=== PATIENT | female | born 1940 | race Caucasian/White ===

== ENCOUNTER → 2017-09-26 | Outpatient (CLI) | payer MEDICARE ==
[~2017-09-26] MED LIST: ALBU8.5H8 IH; ASPI-555 PO; BUDE10.2 IH; DOXY-252 PO; INHALER IH; LISI10TA7 PO; METOPROLOL PO; PREG150C PO; SIMV40TA5 PO
== END | disposition home or self-care (01) ==
LOC: SHCH 08:07
PROVIDERS: ATTEND Internal Medicine Cardiovascular Disease
DX: I51.7 Cardiomegaly (principal); I35.8 Other nonrheumatic aortic valve disorders
CPT/HCPCS: 93306

== ENCOUNTER → 2017-10-02 | Outpatient (CLI) | payer MEDICARE ==
[~2017-10-02] MED LIST changes: +REGADENOSON 0.4 MG/5 ML PF SYG IVP SCH
== END | disposition home or self-care (01) ==
LOC: SHCH 08:00
PROVIDERS: ATTEND Internal Medicine Cardiovascular Disease
DX: R07.89 Other chest pain (principal); R94.31 Abnormal electrocardiogram [ECG] [EKG]; R05 Cough; R06.00 Dyspnea, unspecified; R00.0 Tachycardia, unspecified; R11.0 Nausea; R10.9 Unspecified abdominal pain; R51 Headache
CPT/HCPCS: 78452; 93017; 96374; A9500 ×2; J2785

== ENCOUNTER 2017-10-09 05:30 | Day surgery (SDC) | payer MEDICARE ==
[2017-10-08 09:13] VITALS: BP 117/54
[2017-10-08 09:20] LABS: BASOPHILS % (AUTO) 0.8 % (0.0-5.0); EOSINOPHILS % (AUTO) 1.1 % (0.0-8.0); HEMATOCRIT 43.4 % (36-48); LYMPHOCYTES % (AUTO) 24.9 % (21.0-51.0); MEAN CORPUSCULAR HEMOGLOBIN 32.8 pg (27.0-33.0); MEAN CORPUSCULAR HGB CONC 34.8 g/dL (32.0-36.0); MEAN CORPUSCULAR VOLUME 94.4 fL (79-99); MONOCYTES % (AUTO) 7.2 % (3.0-13.0); PLATELET COUNT (AUTO) 391 K/uL (130-400); WHITE BLOOD COUNT (AUTO) 6.5 K/uL (4.8-10.8)
[2017-10-08 09:26] LABS: CREATININE 0.9 mg/dL (0.5-1.5); POTASSIUM 4.7 mmol/L (3.5-5.1)
[2017-10-08 09:28] LABS: APPEARANCE,URINE Clear (CLEAR); BILIRUBIN,URINE Negative (NEGATIVE); COLOR,URINE Yellow (YELLOW); GLUCOSE, URINE (UA) Negative (NEGATIVE); KETONES,URINE Negative (NEGATIVE); LEUKOCYTE ESTERASE ,URINE Small (NEGATIVE); NITRATE,URINE Negative (NEGATIVE); OCCULT BLOOD,URINE Negative (NEGATIVE); PH,URINE 6.5 (5.0-8.0); PROTEIN,URINE Negative (NEGATIVE)
[2017-10-08 09:32] LABS: PARTIAL THROMBOPLASTIN TIME 26.7 SEC (26.3-35.5); PROTHROMBIN TIME 10.5 SEC (9.6-11.6)
[2017-10-08 09:42] LABS: BACTERIA,URINE Rare /HPF (None Seen); RBC,URINE 0-1 /HPF (0-1); SQUAMOUS EPITHELIAL CELL,UR Rare /LPF (0-2); WBC,URINE 0-1 /HPF (0-1)
[2017-10-09] VITALS (9 sets, daily range): BP systolic 89–113; BP diastolic 40–57
[~2017-10-09] VITALS: Ht 179.1 cm; Wt 56.9 kg
[~2017-10-09 05:30] MED LIST changes: +ACETAMINOPHEN 325 MG TAB PO PRN; -ALBU8.5H8 IH; -BUDE10.2 IH; -DOXY-252 PO; -INHALER IH; -REGADENOSON 0.4 MG/5 ML PF SYG IVP SCH; -SIMV40TA5 PO; +SODIUM CHLORIDE 0.9% 500ML 500 ML IV SCH
[2017-10-09] MEDS ORDERED: INHALER IH (06:50)
[2017-10-09] MEDS ORDERED: IPRATROPIUM/ALBUTEROL SULFATE 3 ML SOLUTION IH ONE (07:48)
[2017-10-09] MEDS ORDERED: IOPAMIDOL-370 100 ML VIAL IV ONE (09:03)
[2017-10-09] MEDS ORDERED: NITROGLYCERIN 5 MG/ML 10 ML VIAL IV ONE (09:03)
[2017-10-09] MEDS ORDERED: ISOVUE-370 50ML VIAL IV ONE (09:03)
[2017-10-09] MEDS ORDERED: HEPARIN SODIUM 1000UNIT/ML 10ML VIAL ONE (09:03)
[2017-10-09] MEDS ORDERED: SODIUM BICARB 50MEQ 50ML VIAL ONE (09:03)
[2017-10-09] MEDS ORDERED: LIDOCAINE HCL 2% 20ML ONE (09:04)
[2017-10-09] MEDS ORDERED: MIDAZOLAM HCL 1 MG/ML 2ML VIAL ONE (09:04)
[2017-10-09] MEDS ORDERED: IOPAMIDOL-370 75 ML VIAL IV ONE (09:04)
[2017-10-09] MEDS ORDERED: MEPERIDINE-PF 25 MG/ML SYG ONE (09:04)
[2017-10-09] MEDS ORDERED: SODIUM CHLORIDE 0.9% 1000ML 1,000 ML IV SCH (09:48)
[2017-10-09] MEDS ORDERED: SIMV40TA5 PO (09:50)
== END 2017-10-09 14:15 | disposition home or self-care (01) ==
LOC: DAH 05:30
PROVIDERS: ATTEND Internal Medicine Cardiovascular Disease
DX: I25.118 Atherosclerotic heart disease of native coronary artery with other forms of angina pectoris (principal); I10 Essential (primary) hypertension; E78.5 Hyperlipidemia, unspecified; M19.90 Unspecified osteoarthritis, unspecified site; M79.7 Fibromyalgia; F41.9 Anxiety disorder, unspecified; F17.200 Nicotine dependence, unspecified, uncomplicated; Z79.01 Long term (current) use of anticoagulants; Z79.82 Long term (current) use of aspirin; Z79.899 Other long term (current) drug therapy; Z88.5 Allergy status to narcotic agent
CPT/HCPCS: 36415; 71045; 80048; 81001; 85025; 85610; 85730; 93005; 93458; 94640; 99156; 99157; A4606; C1760; C1894; J1644; J2175; J2250; J3490 ×3; J7040; Q9967 ×2; 99152; 99153

== ENCOUNTER 2017-11-05 05:55 | Day surgery (SDC) | payer MEDICARE ==
[2017-11-02 09:58] VITALS: BP 115/61
[2017-11-02 09:59] LABS: BASOPHILS % (AUTO) 0.8 % (0.0-5.0); EOSINOPHILS % (AUTO) 1.3 % (0.0-8.0); LYMPHOCYTES % (AUTO) 21.5 % (21.0-51.0); MEAN CORPUSCULAR HEMOGLOBIN 32.4 pg (27.0-33.0); MEAN CORPUSCULAR HGB CONC 34.3 g/dL (32.0-36.0); MEAN CORPUSCULAR VOLUME 94.3 fL (79-99); MONOCYTES % (AUTO) 6.8 % (3.0-13.0); NEUTROPHILS % (AUTO) 69.6 % (40.0-77.0); PLATELET COUNT (AUTO) 228 K/uL (130-400); RED BLOOD CELL COUNT(AUTO) 4.45 MIL/uL (4.00-5.50); RED CELL DISTRIBUTION WIDTH 13.6 % (11.0-15.5); WHITE BLOOD COUNT (AUTO) 6.9 K/uL (4.8-10.8)
[2017-11-02 10:06] LABS: POTASSIUM 4.4 mmol/L (3.5-5.1)
[2017-11-02 10:19] LABS: INR 0.97 (0.85-1.15); PARTIAL THROMBOPLASTIN TIME 25.9 SEC (26.3-35.5); PROTHROMBIN TIME 10.2 SEC (9.6-11.6)
[2017-11-05] VITALS (12 sets, daily range): BP systolic 102–142; BP diastolic 48–64
[~2017-11-05] VITALS: Ht 149.9 cm; Wt 58.2 kg
[~2017-11-05 05:55] MED LIST changes: -ACETAMINOPHEN 325 MG TAB PO PRN; +INHALER IH; +SIMV40TA5 PO; -SODIUM CHLORIDE 0.9% 500ML 500 ML IV SCH
[2017-11-05] MEDS ORDERED: BUDE10.2 IH (06:23)
[2017-11-05] MEDS ORDERED: ALBU8.5H8 IH (06:23)
[2017-11-05] MEDS ORDERED: SODIUM CHLORIDE 0.9% 1000ML 1,000 ML IV ONE ×2 (07:06→07:09)
[2017-11-05] MEDS ORDERED: BUPIVACAINE/PF 0.25% 30ML VIAL IJ ONE (07:09)
[2017-11-05] MEDS ORDERED: LIDOCAINE HCL 1% MDV 50ML VIAL ONE (07:09)
[2017-11-05] MEDS ORDERED: CEFAZOLIN 1GM / D5W 50ML 150 ML ONE (07:10)
[2017-11-05] MEDS ORDERED: MIDAZOLAM HCL 1 MG/ML 2ML VIAL ONE ×2 (07:34→07:46)
[2017-11-05] MEDS ORDERED: MEPERIDINE-PF 50 MG/ML SYG ONE (07:35)
[2017-11-05] MEDS ORDERED: DOXY-252 PO (08:58)
[2017-11-05] MEDS ORDERED: ACETAMINOPHEN 325 MG TAB PO PRN ×2 (09:00)
[2017-11-05] MEDS ORDERED: ONDANSETRON HCL 4 MG/2 ML VIAL IV PRN (09:00)
[2017-11-05] MEDS ORDERED: DOXYCYCLINE HYCLATE 100 MG TABLET PO SCH (12:00)
== END 2017-11-05 15:05 | disposition home or self-care (01) ==
LOC: DAH 05:55
PROVIDERS: ATTEND Internal Medicine Cardiovascular Disease
DX: I45.9 Conduction disorder, unspecified (principal); F41.9 Anxiety disorder, unspecified; I10 Essential (primary) hypertension; E78.5 Hyperlipidemia, unspecified; M79.1 Myalgia; M19.90 Unspecified osteoarthritis, unspecified site; Z98.890 Other specified postprocedural states; Z90.49 Acquired absence of other specified parts of digestive tract; Z88.8 Allergy status to other drugs, medicaments and biological substances; F17.200 Nicotine dependence, unspecified, uncomplicated; R06.00 Dyspnea, unspecified; Z79.01 Long term (current) use of anticoagulants
CPT/HCPCS: 33222; 36415; 80048; 85025; 85610; 85730; 99152; 99153; A4606; J0690; J2175; J2250 ×2; J3490 ×2; J7030 ×2